=== PATIENT | male | born 1990 | race Two or more races ===

== ENCOUNTER 2018-02-25 02:53 | Emergency (ER) | payer OTHER ==
[~2018-02-25] VITALS: Ht 177.8 cm; Wt 104.3 kg
[2018-02-25] MEDS ORDERED: CEFUROXIME500 MG PO (05:27)
[2018-02-25] MEDS ORDERED: KETO10TA2 PO (05:27)
== END 2018-02-25 05:34 | disposition home or self-care (01) ==
LOC: ER 02:53
DX: H66.92 Otitis media, unspecified, left ear (principal)